=== PATIENT | female | born 1930 | race Caucasian/White ===

== ENCOUNTER 2016-11-11 15:14 | Inpatient (IN) | payer MEDICARE, BC ==
[~2016-11-11] VITALS: Ht 160 cm; Wt 72.2 kg
[~2016-11-11 15:14] MED LIST: ALPR0.25 PO; AMIT50TA3 PO; CALC200S NASAL; POTA1TAB4 PO; RANI300T PO; REST0.05 EACH EYE; TORS20TA PO; ZOCO40TA PO
[2016-11-11 15:18] VITALS: BP 161/95; PULSE 102; RESP 16; TEMP 97.9; O2SAT 95
[2016-11-11 15:25] VITALS: BP 177/95; PULSE 88; RESP 14; O2SAT 94
[2016-11-11 15:28] VITALS: O2SAT 99
[2016-11-11] MEDS ORDERED: TRIAPOW TP (15:44)
[2016-11-11] MEDS ORDERED: CALC1TAB87 PO (15:44)
[2016-11-11] MEDS ORDERED: ALPR.25 PO (15:44)
[2016-11-11] MEDS ORDERED: CYAN1TAB24 PO (15:44)
[2016-11-11] MEDS ORDERED: CLOB0.055 TOPICAL (15:44)
[2016-11-11] MEDS ORDERED: FISH1000 PO (15:44)
[2016-11-11] MEDS ORDERED: NYST0.1P TOPICAL (15:44)
[2016-11-11] MEDS ORDERED: [UNRECOGNIZED DRUG - CODE] TP (15:44)
[2016-11-11] MEDS ORDERED: ASPI1TAB69 PO (15:44)
[2016-11-11] MEDS ORDERED: PROB1TAB PO (15:44)
--- NOTE | 2016-11-11 16:12 | PD ---
HPI Chief Complaint: Neuro Symptoms/ Deficits Time Seen by Provider: 16:00 Travel History International Travel<30 days: No Contact w/Intl Traveler<30days: No Traveled to known affect area: No History of Present Illness HPI This patient complains of having strokelike symptoms. Yesterday at dinner time she developed speech slurring and facial droop and drooling. Her cyst through right now. Duration is about 22 hours. Severity is moderate. No alleviating factors. She denies headache or head injury. She takes a baby aspirin daily. She has no extremity weakness or numbness complaints. PFSH Past Medical History Arthritis: Yes Blood Disorders: No Heart Rhythm Problems: Yes Cancer: Yes Cardiovascular Problems: Yes High Cholesterol: Yes Chemotherapy: No Cerebrovascular Accident: Yes Endocrine: No Gastrointestinal Disorders: Yes Genitourinary: No Headaches: Yes Hypertension: Yes (IN THE PAST) Immune Disorder: No Musculoskeletal: Yes (TORN LEFT MENISCUS) Neurologic: Yes (POOR BALANCE-NEUROPATHY FEET-TINGLING) Psychiatric: No Reproductive: No Respiratory: No Radiation Therapy: No Ulcer: Yes Past Surgical History Abdominal Surgery: Yes (COLON RESECTION-APPY) Gynecologic Surgery: Yes (HYSTERECTOMY) Other Surgery: Yes (SEE BELOW, MOES ON HER NOSE ) Social History Alcohol Use: Yes (OCC) Tobacco Use: No Substance Use: No Allergies-Medications (Allergen,Severity, Reaction): Coded Allergies: Neomycin (Verified Allergy, Severe, RASH, 03/15/16) Penicillin (Verified Allergy, Severe, RASH, 03/15/16) Sulfa (Verified Allergy, Severe, RASH, 03/15/16) Reported Meds & Prescriptions Reported Meds & Active Scripts Active Amitriptyline (Amitriptyline HCl) 50 Mg Tab 50 Mg PO HS Ranitidine (Ranitidine HCl) 300 Mg Tab 300 Mg PO DAILY Reported Ceramax (Skin Protectants, Misc.) 1 Cre Cre 1 Applic TP DAILY Clobetasol Topical (Clobetasol Propionate) 0.05% Cream 1 Applic TOPICAL BID Triamcinolone Acetonide (Triamcinolone Acetonide (Topic) 1 Pow Pow 1 Appl TP DAILY Nyata (Nystatin (Topical)) 100,000 Unit/Gm Pow 1 Applic TOPICAL DAILY Fish Oil ([place]-3 Fatty Acids) 1,000 Mg Cap 1 Cap PO DAILY Probiotic (Probiotic Product) 1 Tab Tab 1 Tab PO DAILY B12 (Cyanocobalamin) 1,000 Mcg Tab 1 Tab PO DAILY Calcium 600 with Vitamin D (Calcium Carbonate-Cholecalciferol) 600-400 mg-Unit Tab 1 Tab PO DAILY Aspirin 81 Mg Tabdr 81 Mg PO DAILY Xanax (Alprazolam) 0.25 Mg Tab 0.25 Mg PO Q4H PRN Zocor (Simvastatin) 40 Mg Tab 40 Mg PO DAILY Restasis Opth Drops (Cyclosporine Opth Drops) 0.05% Emul 1 Drop EACH EYE BID Torsemide 20 Mg Tab 20 Mg PO BID K-Tab (Potassium Chloride) 20 Meq Tab 20 Meq PO DAILY Calcitonin ([place]) Nasal [place] (Calcitonin [place]) 200 Units/Act Soln 1 [place] NASAL DAILY Alternate nostrils daily. Review of Systems General / Constitutional: No: Fever Eyes: No: Visual changes HENT: No: Headaches Cardiovascular: No: Chest Pain or Discomfort Respiratory: No: Shortness of Breath Gastrointestinal: No: Abdominal Pain Genitourinary: No: Dysuria Musculoskeletal: No: Pain Skin: No Rash Neurologic: Positive: Slurred Speech, No: Weakness Psychiatric: No: Depression Endocrine: No: Polydipsia Hematologic/Lymphatic: No: Easy Bruising Physical Exam Narrative GENERAL: Well-nourished, well-developed patient in no apparent distress. SKIN: Focused skin assessment reveals no rash and nodules. Skin is Warm and dry. HEAD: Atraumatic. Normocephalic. EYES: Pupils equal and round. No scleral icterus. No injection or drainage. ENT: No nasal bleeding or discharge. Mucous membranes pink and moist. NECK: Trachea midline. No JVD. CARDIOVASCULAR: Regular rate and rhythm. No murmur appreciated. RESPIRATORY: No accessory muscle use. Clear to auscultation. Breath sounds equal bilaterally. GASTROINTESTINAL: Abdomen soft, non-tender, nondistended. Hepatic and splenic margins not palpable. MUSCULOSKELETAL: No obvious deformities. No clubbing. No cyanosis. No edema. NEUROLOGICAL: Awake and alert. Has left-sided facial droop. Tongue protrudes slightly to the right. She has slurred speech. Motor grossly within normal limits. PSYCHIATRIC: Appropriate mood and affect; insight and judgment normal. Data Data Last Documented VS Vital Signs Date Time Temp Pulse Resp B/P Pulse Ox O2 Delivery O2 Flow Rate FiO2 11/11/16 15:28 84 17 95 Room Air 11/11/16 15:25 177/95 11/11/16 15:18 97.9 Orders Electrocardiogram (11/11/16 16:07) Prothrombin Time / Inr (Pt) (11/11/16 16:07) Act Partial Throm Time (Ptt) (11/11/16 16:07) Complete Blood Count With Diff (11/11/16 16:07) Basic Metabolic Panel (Bmp) (11/11/16 16:07) Ct Brain W/O Iv Contrast(Rout) (11/11/16 16:07) Ecg Monitoring (11/11/16 16:07) Iv Access Insert/Monitor (11/11/16 16:07) Oximetry (11/11/16 16:07) Sodium Chloride 0.9% Flush (Ns Flush) (11/11/16 16:15) Labs Laboratory Tests Test 11/11/16 15:50 White Blood Count 7.1 TH/MM3 Red Blood Count 4.77 MIL/MM3 Hemoglobin 13.7 GM/DL Hematocrit 42.0 % Mean Corpuscular Volume 88.1 FL Mean Corpuscular Hemoglobin 28.8 PG Mean Corpuscular Hemoglobin 32.7 % Concent Red Cell Distribution Width 15.7 % Platelet Count 264 TH/MM3 Mean Platelet Volume 7.3 FL Neutrophils (%) (Auto) 79.3 % Lymphocytes (%) (Auto) 12.1 % Monocytes (%) (Auto) 7.9 % Eosinophils (%) (Auto) 0.4 % Basophils (%) (Auto) 0.3 % Neutrophils # (Auto) 5.6 TH/MM3 Lymphocytes # (Auto) 0.9 TH/MM3 Monocytes # (Auto) 0.6 TH/MM3 Eosinophils # (Auto) 0.0 TH/MM3 Basophils # (Auto) 0.0 TH/MM3 CBC Comment DIFF FINAL Differential Comment Prothrombin Time 10.7 SEC Prothromb Time International 1.0 RATIO Ratio Activated Partial 26.7 SEC Thromboplast Time Sodium Level 134 MEQ/L Potassium Level 4.0 MEQ/L Chloride Level 98 MEQ/L Carbon Dioxide Level 27.9 MEQ/L Anion Gap 8 MEQ/L Blood Urea Nitrogen 15 MG/DL Creatinine 1.00 MG/DL Estimat Glomerular Filtration 53 ML/MIN Rate Random Glucose 104 MG/DL Calcium Level 10.0 MG/DL MDM Medical Decision Making Medical Screen Exam Complete: Yes Emergency Medical Condition: Yes Medical Record Reviewed: Yes Differential Diagnosis CVA, TIA, hemorrhage intracranially Narrative Course I have reviewed the patient's electronic medical record. IV placed Brain CT is negative CBC is normal Metabolic profile is normal Coagulation studies are normal I reviewed her EKG which shows sinus rhythm without ectopy Extended cardiac monitoring reveals sinus rhythm without ectopy Presentation is consistent with an ischemic stroke that started 22 hours ago. She is a baby aspirin failure. She'll be admitted for acute ischemic stroke. She is way outside TPA window which is not a consideration at this late time. I placed a call to the medical residents for admission Diagnosis Primary Impression: Acute ischemic stroke Admitting Information Admitting Physician Requests: Admit Dav Mata MD Nov 11, 2016 16:12
[2016-11-11] MEDS ORDERED: SODIUM CHLORIDE 0.9% FLUSH 10 ML FLUSH IVF PRN (16:15)
[2016-11-11 16:33] LABS: AUTOMATED NEUTROPHIL # 5.6 TH/MM3 (1.8-7.7); BASOPHIL % 0.3 % (0.0-2.0); EOSINOPHIL % 0.4 % (0.0-4.0); HEMO FLAGS DIFF FINAL; LYMPH % 12.1 % (9.0-44.0); LYMPHOCYTE # 0.9 TH/MM3 (1.0-4.8); MEAN CELL VOLUME 88.1 FL (80.0-100.0); MEAN CORPUSCULAR HEMOGLOBIN 28.8 PG (27.0-34.0); MEAN CORPUSCULAR HGB CONC 32.7 % (32.0-36.0); MONO % 7.9 % (0.0-8.0); NEUT % 79.3 % (16.0-70.0); PLATELET COUNT 264 TH/MM3 (150-450); RED BLOOD COUNT 4.77 MIL/MM3 (4.00-5.30); RED CELL DISTRIBUTION WIDTH 15.7 % (11.6-17.2); WHITE BLOOD COUNT 7.1 TH/MM3 (4.0-11.0)
[2016-11-11 16:49] LABS: APTT (PATIENT) 26.7 SEC (24.3-30.1); PROTHROMBIN TIME - PATIENT 10.7 SEC (9.8-11.6)
[2016-11-11 16:53] LABS: BICARBONATE 27.9 MEQ/L (21.0-32.0)
--- NOTE | 2016-11-11 17:02 | RADRPT ---
EXAM DATE/TIME: 11/11/2016 16:41 [facility] COMPARISON: No previous studies available for comparison. INDICATIONS : Right sided facial droop and slurred speech since last night. RADIATION DOSE: 33.74 CTDIvol (mGy) MEDICAL HISTORY : Stroke. Hypertension. Carcinoma, colon. SURGICAL HISTORY : None. ENCOUNTER: Initial ACUITY: 1 day PAIN SCALE: 0/10 LOCATION: Bilateral head TECHNIQUE: Multiple contiguous axial images were obtained of the head. Using automated exposure control and adj ustment of the mA and/or kV according to patient size, radiation dose was kept as low as reasonably a chievable to obtain optimal diagnostic quality images. FINDINGS: CEREBRUM: The ventricles are normal for age. No evidence of midline shift, mass lesion, hemorrhage or acute in farction. No extra-axial fluid collections are seen. POSTERIOR FOSSA: The cerebellum and brainstem are intact. The 4th ventricle is midline. The cerebellopontine angle i s unremarkable. EXTRACRANIAL: The visualized portion of the orbits is intact. SKULL: The calvaria is intact. No evidence of skull fracture. CONCLUSION: 1. No acute findings. Elliot Cruz MD on November 11, 2016 at 16:59 Board Certified Radiologist. This report was verified electronically.
--- NOTE | 2016-11-11 17:49 | HHI.HP ---
[facility] Service Family Medicine Primary Care Physician Non-Staff Admission Diagnosis acute ischemic CVA Diagnoses: International Travel<30 Days: No Contact w/Intl Traveler<30days: No Known Affected Area: No History of Present Illness 85-year-old female with hypertension, hyperlipidemia, and hx of stroke (2007 ) presents with slurred speech, dysphagia, and R-sided facial droop x1 day. She noticed slurred speech and trouble swallowing yesterday at 3pm when unable to chew salad or swallow water at lunch. Her last known normal was just prior to this meal. Other symptoms include difficulty writing with her R hand. She denies headache, blurred vision, confusion, syncope, or sudden weakness associated with this event. Only changes to health are two days ago noted L- sided neck pain and "lump", now resolved, she attributed to possible tooth infection. Also fatigue over the last three months, acutely worse in last six days after a skin biopsy from the tip of her nose. Patient lives independently at apartment in [facility]. She did not originally come to hospital as friend suggested symptoms were more typical of allergic medication reaction to Doxycycline she began this week for her nose wound after biopsy. As symptoms were unchanged today, it prompted her to take cab to hospital. Code Status is DNR. (Em Harvey MD R1) Review of Systems Constitutional: DENIES: Fever, Chills Endocrine: COMPLAINS OF: Polydipsia (chronic, dry mouth) Eyes: COMPLAINS OF: Vision loss (chronic, LUQ), DENIES: Blurred vision, Diplopia, Double Vision Ears, nose, mouth, throat: COMPLAINS OF: Running Nose (chronic, allergies), DENIES: Throat pain, Epistaxis, Odynophagia Respiratory: DENIES: Cough, Wheezing, Shortness of breath Cardiovascular: COMPLAINS OF: Lower Extremity Edema (chronic, R > L), DENIES: Chest pain, Palpitations, Syncope Gastrointestinal: COMPLAINS OF: Nausea (yesterday, resolved), Difficulty Swallowing, DENIES: Abdominal pain, Vomiting Genitourinary: COMPLAINS OF: Urinary incontinence (chronic, must "focus" to go) Musculoskeletal: COMPLAINS OF: Neck pain (chronic) Integumentary: COMPLAINS OF: Abnormal pigmentation (lower extremities) Hematologic/lymphatic: DENIES: Lymphadenopathy Neurologic: COMPLAINS OF: Speech Problems, DENIES: Headache Psychiatric: DENIES: Confusion, Mood changes, Depression (Em Harvey MD R1 ) Past Family Social History Past Medical History - osteoporosis with lumbar compression fx - PUD with GI bleeding 2005 - carpal tunnel syndrome L>R - h/o gout - hypertension (Denies) - cerebrovascular disease (hx stroke 2007) - diastolic dysfunction - hyperlipidemia - dry eyes and mouth - h/o colon cancer - OA Past Surgical History - resection of colon cancer 1999 - appendectomy 2000 - cervical spine surgery 2007 - hysterectomy 1997 Reported Medications Active Amitriptyline (Amitriptyline HCl) 50 Mg Tab 50 Mg PO HS Ranitidine (Ranitidine HCl) 300 Mg Tab 300 Mg PO DAILY Reported Ceramax (Skin Protectants, Misc.) 1 Cre Cre 1 Applic TP DAILY Clobetasol Topical (Clobetasol Propionate) 0.05% Cream 1 Applic TOPICAL BID Triamcinolone Acetonide (Triamcinolone Acetonide (Topic) 1 Pow Pow 1 Appl TP DAILY [place]ata (Nystatin (Topical)) 100,000 Unit/Gm Pow 1 Applic TOPICAL DAILY Fish Oil ([place]-3 Fatty Acids) 1,000 Mg Cap 1 Cap PO DAILY Probiotic (Probiotic Product) 1 Tab Tab 1 Tab PO DAILY B12 (Cyanocobalamin) 1,000 Mcg Tab 1 Tab PO DAILY Calcium 600 with Vitamin D (Calcium Carbonate-Cholecalciferol) 600-400 mg-Unit Tab 1 Tab PO DAILY Aspirin 81 Mg Tabdr 81 Mg PO DAILY Xanax (Alprazolam) 0.25 Mg Tab 0.25 Mg PO Q4H PRN Zocor (Simvastatin) 40 Mg Tab 40 Mg PO DAILY Restasis Opth Drops (Cyclosporine Opth Drops) 0.05% Emul 1 Drop EACH EYE BID Torsemide 20 Mg Tab 20 Mg PO BID K-Tab (Potassium Chloride) 20 Meq Tab 20 Meq PO DAILY Calcitonin ([place]) Nasal [place] (Calcitonin [place]) 200 Units/Act Soln 1 [place] NASAL DAILY Alternate nostrils daily. (Em aHrvey MD R1) Allergies: Coded Allergies: Neomycin (Verified Allergy, Severe, RASH, 03/15/16) Penicillin (Verified Allergy, Severe, RASH, 03/15/16) Sulfa (Verified Allergy, Severe, RASH, 03/15/16) Family History Father: age 86 of heart failure Mother: age 96 of CHF Siblings: none Children: 3 - 1 age 59 of multiple myeloma Social History Marital Status: Living Situation: Living in an independent apartment at [facility] Education: 4 years of college Work history: retired, aerospace management Tobacco: none Alcohol: none Illicit drug use: none (Em Harvey MD R1) Physical Exam Vital Signs Vital Signs Date Time Temp Pulse Resp B/P Pulse Ox O2 Delivery O2 Flow Rate FiO2 11/11/16 15:28 84 17 95 Room Air 11/11/16 15:28 99 Room Air 11/11/16 15:25 88 14 177/95 94 11/11/16 15:18 97.9 102 16 161/95 95 Physical Exam GENERAL: Obese elderly female in NAD SKIN: Venous stasis changes lower extremities bilaterally. Warm and dry HEENT: Pupils equal round and reactive. Extraocular motions intact. No scleral icterus. No injection or drainage. Nose with 5mm circular wound with granulation tissue covered by bandaid. Throat without erythema, tonsillar hypertrophy or exudate. Uvula midline. Airway patent NECK: Trachea midline. No lymphadenopathy. No carotid bruits. CARDIOVASCULAR: Distant heart sounds. Regular rate and rhythm, without murmurs or gallops. RESPIRATORY: Lungs clear to auscultation bilaterally. No wheezes, rales, or rhonchi. GASTROINTESTINAL: Abdomen obese, soft, non-tender, nondistended. No hepato- splenomegaly, or palpable masses. No guarding. MUSCULOSKELETAL: Wearing shear compression stockings rolled down to ankle. Peripheral edema 1+ LE. Firmness to L calf. R calf larger in diameter than L ( pt states chronic), no calf tenderness. Posterior tibial pulses present. NEUROLOGICAL: AAO. Sensation intact V1-V3. Normal eyebrow raise, symmetrical wrinkling of forehead, normal eye closure. R-sided facial droop with smile. R-sided tongue deviation with extension. R shoulder sits lower than L at rest, though shrug strength full and equal. Slowed ability of R hand to rapidly alternate palm and dorsal hand surface to L palm. No pronator drift. Strength 5/5 and equal at SCM, deltoid, biceps, triceps, finger manager embalmer funeral director, hip flexion, knee flexion/extension, ankle flexion/extension Sensation grossly intact to V1-V3 and upper and lower extremities Patellar reflex 1+ bilaterally Gait with walker not overtly ataxic Laboratory Laboratory Tests Test 11/11/16 15:50 White Blood Count 7.1 Red Blood Count 4.77 Hemoglobin 13.7 Hematocrit 42.0 Mean Corpuscular Volume 88.1 Mean Corpuscular Hemoglobin 28.8 Mean Corpuscular Hemoglobin 32.7 Concent Red Cell Distribution Width 15.7 Platelet Count 264 Mean Platelet Volume 7.3 Neutrophils (%) (Auto) 79.3 Lymphocytes (%) (Auto) 12.1 Monocytes (%) (Auto) 7.9 Eosinophils (%) (Auto) 0.4 Basophils (%) (Auto) 0.3 Neutrophils # (Auto) 5.6 Lymphocytes # (Auto) 0.9 Monocytes # (Auto) 0.6 Eosinophils # (Auto) 0.0 Basophils # (Auto) 0.0 CBC Comment DIFF FINAL Differential Comment Prothrombin Time 10.7 Prothromb Time International 1.0 Ratio Activated Partial 26.7 Thromboplast Time Sodium Level 134 Potassium Level 4.0 Chloride Level 98 Carbon Dioxide Level 27.9 Anion Gap 8 Blood Urea Nitrogen 15 Creatinine 1.00 Estimat Glomerular Filtration 53 Rate Random Glucose 104 Calcium Level 10.0 (Em Harvey MD R1) Result Diagram: 11/11/16 1550 11/11/16 1550 Imaging Last Impressions Head CT 11/11/16 1607 Signed Impressions: Service Date/Time: Friday, November 11, 2016 16:41 - CONCLUSION: 1. No acute findings. Elliot Cruz MD (Em Harvey MD R1) Assessment and Plan Assessment and Plan 85 year-old female presenting with slurred speech and R facial droop 22 hours prior to admission, found to have acute ischemic stroke. Failed aspirin therapy. Code Status DNR Discussed Condition With Seen and discussed with Dr. Cole (Em Harvey MD R1) Attending Attestation THIS CASE WAS DISCUSSED WITH THE RESIDENT PHYSICIANS. I HAVE REVIEWED THE RECORD AND AGREE WITH THE ABOVE NOTE AND PLAN OF CARE WAS DISCUSSED. I HAVE AUTHORIZED THE ORDER FOR ADMISSION TO AN IN-PATIENT STATUS. (Manuel Lemons MD) Problem List: (1) Acute ischemic stroke Status: Acute Plan: 85-year-old female with hypertension, hyperlipidemia, and hx of ischemic stroke in 2007 with subsequent deficit of LUQ vision, presenting with 22 hours of slurred speech, difficulty swallowing, and right-sided facial droop suggestive of acute ischemic stroke. Outside of window for TPA consideration. CT head negative for bleed. EKG wnl. Will admit for further imaging, workup, and antiplatelet therapy. Only imaging in EHR a cervical neck Xray from 2007. No prior cardiac or neurological imaging in EHR. -Admit to [facility] Service under Dr. Lemons -Consult Neurology, PT/OT/ST, Stroke navigator, Case Management -Head of bed flat to 30 degrees for first 12 hours -OOB with assistance- no focal weakness upper or lower extremities on exam. Pt gait observed with wheeled walker- steady, no overt ataxia or weakness -Low suspicion for cardiac involvement- no chest pain, EKG x1 wnl, will trend trop/cpk x1, if reassuring, will not continue to follow -Continuous telemetry, pulse oximetry with O2 1-4L PRN to maintain saturations > 90 -Permissive hypertension to 220/110 -Hyperglycemia prophylaxis with accue-checks ACHS + LSSI -NIH stroke scale on admission and discharge -Neurochecks per protocol -NPO diet until advanced by speech therapy -Fall precautions Imaging MRA brain w/o contrast, MRI brain w/o contrast, ECHO, US carotid arteries pending CT head (11/11): no acute findings, negative for bleed. EKG: sinus rhythm without ectopy Medications -Continue 81mg aspirin daily -Add Plavix 75 mg by mouth daily -1/2 MIVF @66cc/hr for poor PO intake secondary to dysphagia. If PO cleared by speech, discontinue fluids in light of diastolic CHF + peripheral edema -PRN Vas[employer] 1.25mg q4h PRN blood pressure >220/120 -LSSI, to be discontinued if glucose <150 for 48 hours (2) Diastolic dysfunction Status: Acute Plan: No cardiac imaging in EHR. Diagnosis per PCP Note and clinical presentation with peripheral edema. -Home Torsemide 20mg PO BID -Home KCl 20meq PO daily -Home Aspirin 81 Mg PO daily -ECHO pending (3) HLD (hyperlipidemia) Status: Acute Plan: Hold home statin -Atorvastatin 40mg HS -Lipid panel in AM (4) Nutrition, metabolism, and development symptoms Status: Acute Plan: Fluids: 1/2MIVF secondary to poor po (NS @ 66cc/hr) Electrolytes: Monitor and replete, as needed Nutrition: NPO until speech evaluation, advance diet with speech recommendations GI prophylaxis: not indicated, continue home Ranitidine DVT prophlaxis: Lovenox 40mg SQ q24h Chronic Medical Conditions Depression: Continue Amitriptyline 50 Mg PO HS Insomnia: Continue Xanax 0.25 Mg PO Q4H PRN (pt states rare use) GERD: Continue Ranitidine 300mg PO daily. Hold Probiotic HLD: Hold Simvastatin 40 Mg PO daily. Will replace with higher strength. Venous Statis: Hold Ceramax Cream. Hold Clobetasol Topical creme Fungal rash: Hold Triamcinolone Acetonide. Hold Nystatin. HLD: Hold Fish Oil Supplements: Hold B12 Osteoporosis: Hold Calcium with Vitamin D Dry Eyes: Hold Restasis Opth Drops Allergic rhinitis: Hold Calcitonin Nasal [place] (Em Harvey MD R1) Physician Certification 2 Midnight Certification Type: Admission for Inpatient Services Order for Inpatient Services The services are ordered in accordance with Medicare regulations or non- Medicare payer requirements, as applicable. In the case of services not specified as inpatient-only, they are appropriately provided as inpatient services in accordance with the 2-midnight benchmark. Estimated LOS (days): 3 days is the estimated time the patient will need to remain in the hospital, assuming treatment plan goals are met and no additional complications. Post-Hospital Plan: Not yet determined (Em Harvey MD R1) Problem Qualifiers (1) HLD (hyperlipidemia): Qualified Code: E78.5 - Hyperlipidemia, unspecified hyperlipidemia type Em Harvey MD R1 Nov 11, 2016 17:49 Manuel Lemons MD Nov 12, 2016 10:52
[2016-11-11] MEDS: CALCITONIN SALM 200 UNIT/SPRAY 3.7 ML BTLN NASAL SCH (18:15)
[2016-11-11] MEDS ORDERED: ALPRAZolam 0.25 MG TAB PO PRN (18:15)
[2016-11-11 18:39] VITALS: BP 166/91; PULSE 76; RESP 16; O2SAT 95
[2016-11-11] MEDS ORDERED: ENALAPRILAT 1.25 MG/ML VIAL IV PRN (18:45)
[2016-11-11] MEDS ORDERED: GLUCAGON 1 MG/ML VIAL IM/SQ PRN (18:45)
[2016-11-11] MEDS ORDERED: SODIUM CHLORIDE 0.9% FLUSH 10 ML FLUSH IV FLUSH PRN (18:45)
[2016-11-11] MEDS ORDERED: DEXTROSE 50% IN WATER 50 ML VIAL(D50) IV PUSH PRN (18:45)
[2016-11-11] MEDS: CLOPIDOGREL 75 MG TAB PO SCH (19:51)
[2016-11-11] MEDS: ENOXAPARIN SODIUM 40 MG/0.4 ML SYRINGE SQ SCH (19:51)
[2016-11-11 19:52] VITALS: BP 166/91; PULSE 75; RESP 18; O2SAT 97
[2016-11-11] MEDS: SODIUM CHLOR 0.9% 1000 ML INJ 1,000 ML IV SCH (19:52)
[2016-11-11] MEDS: SODIUM CHLORIDE 0.9% FLUSH 10 ML FLUSH IV FLUSH SCH (21:00)
[2016-11-11] MEDS: INSULIN ASPART SUPPLEMENTAL SCALE SQ SCH (21:26)
[2016-11-11] MEDS: TORSEMIDE 20 MG TAB PO SCH (21:30)
[2016-11-11 22:03] LABS: CREATINE KINASE 242 U/L (26-192)
[2016-11-11 22:15] LABS: CKMB 6.2 NG/ML (0.5-3.6)
[2016-11-11] MEDS: AMITRIPTYLINE HCL 50 MG TAB PO SCH (22:23)
--- NOTE | 2016-11-11 22:28 | RADRPT ---
EXAM DATE/TIME: 11/11/2016 20:04 [facility] COMPARISON: No previous studies available for comparison. INDICATIONS : Cerebrovascular accident. MEDICAL HISTORY : Hypercholesterolemia. Hypertension. Bilateral cataracts. Cerebrovascular accident. Irregular heartb eat. Colon cancer. Ulcer. Arthritis. Neuropathy. Osteoporosis. Blood transfusion. SURGICAL HISTORY : Appendectomy. Colon resection. Hysterectomy. Right finger amputation. ENCOUNTER: Initial ACUITY: 1 day PAIN SCORE: 0/10 LOCATION: Bilateral neck PEAK SYSTOLIC VELOCITIES (cm/sec): ICA/CCA RATIO: Right: 1.3 Left: 1.6 ICA: Right: 76 Left: 69 CCA: Right: 57 Left: 43 ECA: Right: 76 Left: 59 VERTEBRAL: Right: 51 antegrade Left: 34 antegrade Elevated flow velocities and ICA/CCA ratios have been found to correlate with increased degrees of vessel stenosis, calculated as percentage of diameter relative to a normal segment of distal ICA/CCA FINDINGS: RIGHT CAROTID: No significant stenosis is visualized. The waveforms are within normal limits. LEFT CAROTID: No significant stenosis is visualized. The waveforms are within normal limits. VERTEBRAL ARTERIES: Antegrade flow is seen in both vertebral arteries. MISCELLANEOUS: None. CONCLUSION: 1. Mild plaque in the carotid arteries bilaterally without evidence for hemodynamically significant s tenosis. Vertebral artery flow antegrade. Elliot Cruz MD on November 11, 2016 at 22:25 Board Certified Radiologist. This report was verified electronically.
[2016-11-11] MEDS: ATORVASTATIN 40 MG TAB PO SCH (22:30)
[2016-11-12 00:33] VITALS: BP 147/82; PULSE 72; RESP 20; TEMP 96.8; O2SAT 95
[2016-11-12 04:42] VITALS: BP 135/74; PULSE 76; RESP 18; TEMP 97.7; O2SAT 94
[2016-11-12] MEDS: INSULIN ASPART SUPPLEMENTAL SCALE SQ SCH ×2 (06:14→20:46)
[2016-11-12 07:59] LABS: AUTOMATED NEUTROPHIL # 3.9 TH/MM3 (1.8-7.7); BASOPHIL % 0.3 % (0.0-2.0); EOSINOPHIL # 0.2 TH/MM3 (0-0.4); EOSINOPHIL % 2.7 % (0.0-4.0); HEMATOCRIT 38.5 % (35.0-46.0); HEMO FLAGS DIFF FINAL; LYMPH % 19.7 % (9.0-44.0); LYMPHOCYTE # 1.1 TH/MM3 (1.0-4.8); MEAN CELL VOLUME 87.5 FL (80.0-100.0); MEAN CORPUSCULAR HGB CONC 33.1 % (32.0-36.0); MONO % 10.7 % (0.0-8.0); NEUT % 66.6 % (16.0-70.0); PLATELET COUNT 243 TH/MM3 (150-450); RED CELL DISTRIBUTION WIDTH 15.7 % (11.6-17.2); WHITE BLOOD COUNT 5.8 TH/MM3 (4.0-11.0)
[2016-11-12 08:25] VITALS: BP 130/76; PULSE 66; RESP 20; TEMP 97.2; O2SAT 95
[2016-11-12 08:35] LABS: ALKALINE PHOSPHATASE 84 U/L (45-117); ALT (GPT) 19 U/L (10-53); ANION GAP 10 MEQ/L (5-15); AST (GOT) 22 U/L (15-37); BICARBONATE 23.6 MEQ/L (21.0-32.0); BLOOD UREA NITROGEN 10 MG/DL (7-18); CHLORIDE 105 MEQ/L (98-107); GLOMERULAR FILTRATION RATE 90 ML/MIN (>89); HDL CHOLESTEROL 29.6 MG/DL (40.0-60.0); LDL CHOLESTEROL 70 MG/DL (0-99); POTASSIUM 3.3 MEQ/L (3.5-5.1); SODIUM (NA) 139 MEQ/L (136-145); TOTAL BILIRUBIN ADULT 0.7 MG/DL (0.2-1.0)
[2016-11-12] MEDS: CLOPIDOGREL 75 MG TAB PO SCH (08:44)
[2016-11-12] MEDS: FAMOTIDINE 20 MG TAB PO SCH (08:44)
[2016-11-12] MEDS: SODIUM CHLORIDE 0.9% FLUSH 10 ML FLUSH IV FLUSH SCH ×2 (08:45→20:46)
[2016-11-12] MEDS: TORSEMIDE 20 MG TAB PO SCH ×2 (08:45→20:45)
[2016-11-12] MEDS: POTASSIUM CHLORIDE 20 MEQ CONTROLLED RELEASE TAB PO SCH (08:45)
[2016-11-12] MEDS: CALCITONIN SALM 200 UNIT/SPRAY 3.7 ML BTLN NASAL SCH (08:45)
[2016-11-12] MEDS ORDERED: ASPIRIN EC 81 MG TABEC PO SCH (09:00)
--- NOTE | 2016-11-12 10:27 | RADRPT ---
EXAM DATE/TIME: 11/12/2016 07:31 [facility] COMPARISON: CT BRAIN W/O CONTRAST, November 11, 2016, 16:41. INDICATIONS : Slurred speech. Right facial droop. MEDICAL HISTORY : Hypertension. Carcinoma, colon. SURGICAL HISTORY : Hysterectomy. Colon resection. ENCOUNTER: Initial ACUITY: 2 day PAIN SCORE: 0/10 LOCATION: cranial TECHNIQUE: Multiplanar, multisequence MRI of the brain was performed without contrast. FINDINGS: There is no evidence for intracranial hemorrhage, mass effect, mass lesions, edema, or extra-axial fl uid collections. There is an approximate 1.4 cm area of abnormal diffusion in the left mid parietal p eriventricular region with a punctate area adjacent to it characteristic of acute infarction without hemorrhage or mass effect. There is a questionable punctate area involving the anterior portion of th e midbrain at the junction of the travis on the left side possibly artifactually created on the diffusi on portion of the exam. Slight degree of brain atrophy is seen. Slight periventricular white matter c hanges are seen nonspecific mostly consistent with chronic small vessel ischemic changes. CONCLUSION: Acute infarction involving the left parietal lobe without hemorrhage or mass effect a nd probable artifact involving the anterior portion of the brainstem on the left side as above. Agueda Palencia MD on November 12, 2016 at 10:23 Board Certified Radiologist. This report was verified electronically.
--- NOTE | 2016-11-12 10:29 | RADRPT ---
EXAM DATE/TIME: 11/12/2016 07:31 [place] COMPARISON: MRI BRAIN W/O CONTRAST, November 12, 2016, 7:31. INDICATIONS : Slurred speech. Right facial droop. MEDICAL HISTORY : Hypertension. Carcinoma, colon. SURGICAL HISTORY : Colon resection. Hysterectomy. ENCOUNTER: Initial ACUITY: 2 day PAIN SCORE: 0/10 LOCATION: cranial Please note a normal MRA of the brain does not entirely exclude the possibility of a small aneurysm, nor the possibility of distal intracranial vessel disease. TECHNIQUE: 3D time of flight MRA was performed. Source images, multiplanar STS MIP, and 3D volume MIP reconstru ctions were reviewed. FINDINGS: No significant vascular malformations, vessel truncation or aneurysmal dilatations are seen except fo r slight atherosclerotic changes involving multiple branches bilaterally mainly the MCAs. CONCLUSION: Slight atherosclerotic changes of distal branches bilaterally, otherwise unremarkable . Agueda Palencia MD on November 12, 2016 at 10:26 Board Certified Radiologist. This report was verified electronically.
--- NOTE | 2016-11-12 10:44 | PD.CONS ---
History of Present Illness Service Neurology Consult Requested By medical Reason for Consult stroke Primary Care Physician Non-Staff History of Present Illness 85-year-old female admitted for speech changes >12 hrs from arrival. had recent nasal surgery and was taken off aspirin. ct brain naicp. doing well this am. no briones, no cp, no dyspnea. no hx of afib. remote hx of stroke in the past that caused a left field defect from which she has recovered well from. Review of Systems as above and admit hp Past Family Social History Past Medical History osteoporosis with lumbar compression fx PUD with GI bleeding 2005 carpal tunnel syndrome L>R hypertension? cerebrovascular disease (hx stroke 2007) hyperlipidemia h/o colon cancer Past Surgical History resection of colon cancer 1999 appendectomy 2000 cervical spine surgery 2007 Reported Medications Active Amitriptyline (Amitriptyline HCl) 50 Mg Tab 50 Mg PO HS Ranitidine (Ranitidine HCl) 300 Mg Tab 300 Mg PO DAILY . Allergies: Coded Allergies: Neomycin (Verified Allergy, Severe, RASH, 03/15/16) Penicillin (Verified Allergy, Severe, RASH, 03/15/16) Sulfa (Verified Allergy, Severe, RASH, 03/15/16) Family History Father: age 86 of heart failure Mother: age 96 of CHF Social History Tobacco: none Alcohol: none Illicit drug use: none Review of Systems All other ROS: ROS reviewed as documented in chart Past Family Social History Allergies: Coded Allergies: Neomycin (Verified Allergy, Severe, RASH, 03/15/16) Penicillin (Verified Allergy, Severe, RASH, 03/15/16) Sulfa (Verified Allergy, Severe, RASH, 03/15/16) Active Ordered Medications Current Medications Medications (Trade) Dose Ordered Sig/Gavin Route Start Time Stop Time Status Last Admin (Xanax) 0.25 mg Q4H PRN PO 11/11/16 18:15 11/12/16 06:33 (Elavil) 50 mg HS PO 11/11/16 21:00 11/11/16 22:23 (NS Flush) 2 ml BID IV FLUSH 11/11/16 21:00 11/12/16 08:45 Sodium Chloride 2 ml 2 ml UNSCH PRN IV FLUSH 11/11/16 18:45 (NS 1000 ml Inj) 1,000 ml @ 66 mls/hr [id number] IV 4/15/17 18:39 11/11/16 19:52 (Vasotec Inj) 1.25 mg Q4H PRN IV 11/11/16 18:45 (Plavix) 75 mg DAILY PO 11/11/16 18:45 11/12/16 08:44 (D50w (Vial) Inj) 25 ml UNSCH PRN IV PUSH 11/11/16 18:45 (Glucagon Inj) 1 mg UNSCH PRN IM/SQ 11/11/16 18:45 (Lovenox Inj) 40 mg Q24H SQ 11/11/16 20:00 11/11/16 19:51 (Ecotrin Ec) 81 mg DAILY PO 11/12/16 09:00 11/12/16 08:45 (KCl) 20 meq DAILY PO 11/12/16 09:00 11/12/16 08:45 (Demadex) 20 mg BID PO 11/11/16 21:30 11/12/16 08:45 (Pepcid) 40 mg DAILY PO 11/12/16 09:00 11/12/16 08:44 (Lipitor) 40 mg HS PO 11/11/16 22:30 Exam I&O / VS 11/11/16 11/11/16 11/12/16 15:00 23:00 07:00 Intake Total 364 ml Balance 364 ml Intake IV Total 364 ml # Voids 1 Vital Signs Date Time Temp Pulse Resp B/P Pulse Ox O2 Delivery O2 Flow Rate FiO2 11/12/16 08:25 97.2 66 20 130/76 95 11/12/16 04:42 97.7 76 18 135/74 94 11/12/16 00:33 96.8 72 20 147/82 95 11/11/16 19:52 75 18 166/91 97 Room Air 11/11/16 18:39 76 16 166/91 95 Room Air 11/11/16 15:28 84 17 95 Room Air 11/11/16 15:28 99 Room Air 11/11/16 15:25 88 14 177/95 94 11/11/16 15:18 97.9 102 16 161/95 95 General: Alert and Oriented, No acute distress Eye: EOMI Respiratory: Non-labored respirations Neurologic: Alert, Oriented Psychiatric: Cooperative, Appropriate mood & affect, Normal judgement, Non- suicidal Exam Comments alert sitting up, ox 3, follows, mild expressive aphasia, reduced rt nlf, eomi, vff, mild orbiting rt ue, 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 not certain left ventral dwi is artifact or real; could repeat mri in future lipids well controlled recs on plavix tele p.t./s.t. f/u echo bp control d/c planning in am (2) HLD (hyperlipidemia) (3) Diastolic dysfunction (4) HTN (hypertension) Problem Qualifiers (1) HLD (hyperlipidemia): Qualified Code: E78.5 - Hyperlipidemia, unspecified hyperlipidemia type (2) HTN (hypertension): Qualified Code: I10 - Essential hypertension Khai Hunter MD Nov 12, 2016 10:44
--- NOTE | 2016-11-12 10:52 | HHI.HP ---
[facility] Service Family Medicine Primary Care Physician Non-Staff Admission Diagnosis acute ischemic CVA Diagnoses: (1) Acute ischemic stroke (2) Diastolic dysfunction (3) HLD (hyperlipidemia) (4) Nutrition, metabolism, and development symptoms International Travel<30 Days: No Contact w/Intl Traveler<30days: No Known Affected Area: No History of Present Illness No acute events overnight and patient feels relatively well this morning. She continues to have right sided facial droop along with slurred speech but denies any unilateral paresthesias or weakness. She has been out of bed to the chair and to the bathroom, she states that she was walking relatively steady without dizziness, lightheadedness, or ataxia. She feels hungry today and would like to eat breakfast. She denies any chest pain, palpitations, lightheadedness/ dizziness, blurred vision or double vision, or shortness of breath. In summary this is an 85-year-old female with a previous history of CVA 1, hypertension, hyperlipidemia who presents with one-day history of right sided facial droop and slurred speech. This is associated with difficulty writing with her right hand and difficulty with fine motor movement of her right hand. She recently had a skin cancer lesion removed from the tip of her nose 6 days ago and is using bacitracin ointment on this twice daily. She lives independently at an apartment in [facility]. Review of Systems Constitutional: COMPLAINS OF: Fatigue, DENIES: Fever, Weight loss, Chills, Dizziness Eyes: DENIES: Blurred vision, Diplopia, Vision loss, Photosensitivity, Double Vision Respiratory: DENIES: Cough, Wheezing, Sputum production, Shortness of breath Cardiovascular: DENIES: Chest pain, Palpitations Gastrointestinal: DENIES: Abdominal pain, Constipation, Diarrhea, Nausea, Vomiting, Difficulty Swallowing Neurologic: COMPLAINS OF: Speech Problems, DENIES: Abnormal gait, Headache, Localized weakness, Paresthesias, Seizures, Tremor, Poor Balance Psychiatric: DENIES: Anxiety, Hallucinations, Delusions Past Family Social History Past Medical History - osteoporosis with lumbar compression fx - PUD with GI bleeding 2005 - carpal tunnel syndrome L>R - h/o gout - hypertension (Denies) - cerebrovascular disease (hx stroke 2007) - diastolic dysfunction - hyperlipidemia - dry eyes and mouth - h/o colon cancer - OA Past Surgical History - resection of colon cancer 1999 - appendectomy 2000 - cervical spine surgery 2007 - hysterectomy 1997 Allergies: Coded Allergies: Neomycin (Verified Allergy, Severe, RASH, 03/15/16) Penicillin (Verified Allergy, Severe, RASH, 03/15/16) Sulfa (Verified Allergy, Severe, RASH, 03/15/16) Family History Father: age 86 of heart failure Mother: age 96 of CHF Siblings: none Children: 3 - 1 age 59 of multiple myeloma Social History Marital Status: Living Situation: Living in an independent apartment at [facility] Education: 4 years of college Work history: retired, aerospace management Tobacco: none Alcohol: none Illicit drug use: none Physical Exam Vital Signs Vital Signs Date Time Temp Pulse Resp B/P Pulse Ox O2 Delivery O2 Flow Rate FiO2 11/12/16 08:25 97.2 66 20 130/76 95 11/12/16 04:42 97.7 76 18 135/74 94 11/12/16 00:33 96.8 72 20 147/82 95 11/11/16 19:52 75 18 166/91 97 Room Air 11/11/16 18:39 76 16 166/91 95 Room Air 11/11/16 15:28 84 17 95 Room Air 11/11/16 15:28 99 Room Air 11/11/16 15:25 88 14 177/95 94 11/11/16 15:18 97.9 102 16 161/95 95 Physical Exam GENERAL: Elderly female, sitting up in chair next to bed in no obvious distress SKIN: Venous stasis changes lower extremities bilaterally. Tip of nose with ulcerated lesion 5 mm and circular, and no surrounding erythema or drainage HEENT: Pupils equal round and reactive. Extraocular motions intact. NECK: Trachea midline. No lymphadenopathy. No carotid bruits. CARDIOVASCULAR: Regular rate and rhythm, without murmurs or gallops. RESPIRATORY: Lungs clear to auscultation bilaterally. No wheezes, rales, or rhonchi. GASTROINTESTINAL: Abdomen obese, soft, non-tender, nondistended. MUSCULOSKELETAL: Peripheral edema 1+ LE. Firmness to L calf. NEUROLOGICAL: AAO. Sensation intact V1-V3. Normal eyebrow raise, symmetrical wrinkling of forehead. Right sided facial droop with right sided tongue deviation. No pronator drift. Laboratory Laboratory Tests Test 11/11/16 11/11/16 11/12/16 15:50 21:00 07:10 White Blood Count 7.1 5.8 Red Blood Count 4.77 4.40 Hemoglobin 13.7 12.7 Hematocrit 42.0 38.5 Mean Corpuscular Volume 88.1 87.5 Mean Corpuscular Hemoglobin 28.8 29.0 Mean Corpuscular Hemoglobin 32.7 33.1 Concent Red Cell Distribution Width 15.7 15.7 Platelet Count 264 243 Mean Platelet Volume 7.3 7.2 Neutrophils (%) (Auto) 79.3 66.6 Lymphocytes (%) (Auto) 12.1 19.7 Monocytes (%) (Auto) 7.9 10.7 Eosinophils (%) (Auto) 0.4 2.7 Basophils (%) (Auto) 0.3 0.3 Neutrophils # (Auto) 5.6 3.9 Lymphocytes # (Auto) 0.9 1.1 Monocytes # (Auto) 0.6 0.6 Eosinophils # (Auto) 0.0 0.2 Basophils # (Auto) 0.0 0.0 CBC Comment DIFF FINAL DIFF FINAL Differential Comment Prothrombin Time 10.7 Prothromb Time International 1.0 Ratio Activated Partial 26.7 Thromboplast Time Sodium Level 134 139 Potassium Level 4.0 3.3 Chloride Level 98 105 Carbon Dioxide Level 27.9 23.6 Anion Gap 8 10 Blood Urea Nitrogen 15 10 Creatinine 1.00 0.63 Estimat Glomerular Filtration 53 90 Rate Random Glucose 104 79 Calcium Level 10.0 8.6 Total Creatine Kinase 242 Creatine Kinase MB 6.2 Creatine Kinase MB % 2.6 Troponin I LESS THAN 0.02 Total Bilirubin 0.7 Aspartate Amino Transf 22 (AST/SGOT) Alanine Aminotransferase 19 (ALT/SGPT) Alkaline Phosphatase 84 Total Protein 6.3 Albumin 3.2 Triglycerides Level 84 Cholesterol Level 116 LDL Cholesterol 70 HDL Cholesterol 29.6 Cholesterol/HDL Ratio 3.91 Result Diagram: 11/12/1670911/12/16709 Imaging Last 48 hours Impressions Head Magnetic Resonance Angiography 11/12/162232 Signed Impressions: Service Date/Time: Saturday, November 12, 2016 07:31 - CONCLUSION: Slight atherosclerotic changes of distal branches bilaterally, otherwise unremarkable. Agueda Palencia MD Brain MRI 11/12/162232 Signed Impressions: Service Date/Time: Saturday, November 12, 2016 07:31 - CONCLUSION: Acute infarction involving the left parietal lobe without hemorrhage or mass effect and probable artifact involving the anterior portion of the brainstem on the left side as above. Agueda Palencia MD Head CT 11/11/16 1607 Signed Impressions: Service Date/Time: Friday, November 11, 2016 16:41 - CONCLUSION: 1. No acute findings. Elliot Cruz MD Carotid Artery Ultrasound 11/11/16 0000 Signed Impressions: Service Date/Time: Friday, November 11, 2016 20:04 - CONCLUSION: 1. Mild plaque in the carotid arteries bilaterally without evidence for hemodynamically significant stenosis. Vertebral artery flow antegrade. Elliot Cruz MD Assessment and Plan Assessment and Plan 85 year-old female presenting with slurred speech and R facial droop 22 hours prior to admission, found to have acute ischemic stroke. Failed aspirin therapy. Problem List: (1) Acute ischemic stroke Status: Acute Plan: Continued right sided facial droop with slurred speech Brain MRI: Acute infarction involving the left parietal lobe without hemorrhage or mass effect Brain MRA: slight atherosclerotic changes of distal branches bilaterally, otherwise unremarkable Carotid ultrasound: Mild plaque in the carotid arteries bilaterally without evidence for hemodynamically significant stenosis Head CT: No acute findings 2-D echocardiogram pending Medication management: Aspirin 81 mg by mouth daily Plavix 75 mg by mouth daily - added on admission Atorvastatin 40 mg by mouth daily Continue permissive hypertension Physical therapy consulted to evaluate patient Speech therapy has evaluated patient and recommends a mechanical soft diet with nectar thickened liquids Neurology consulted to evaluate patient, appreciate recommendations (2) Diastolic dysfunction Status: Acute Plan: No cardiac imaging in EHR. Diagnosis per PCP Note and clinical presentation with peripheral edema. -Home Torsemide 20mg PO BID -Home KCl 20meq PO daily -Home Aspirin 81 Mg PO daily -ECHO pending (3) HTN (hypertension) Status: Acute Plan: Permissive hypertension at this time - As needed Vasotec for systolic blood pressure greater than 220 (4) HLD (hyperlipidemia) Status: Acute Plan: Hold home statin started on atorvastatin 40 mg daily at bedtime Lipid panel performed: Total cholesterol 116 LDL 70 HDL 29.6 Triglycerides 84 (5) Skin cancer of nose Status: Acute Plan: Recently removed from tip of nose - Continue bacitracin ointment twice daily - Daily dressing changes (6) Nutrition, metabolism, and development symptoms Status: Acute Plan: Fluids: Discontinue IV fluids, mechanical soft diet with nectar thickened liquids Electrolytes: Monitor and replete, as needed GI prophylaxis: not indicated, continue home Ranitidine DVT prophlaxis: Lovenox 40mg SQ q24h Physician Certification 2 Midnight Certification Type: Admission for Inpatient Services Order for Inpatient Services The services are ordered in accordance with Medicare regulations or non- Medicare payer requirements, as applicable. In the case of services not specified as inpatient-only, they are appropriately provided as inpatient services in accordance with the 2-midnight benchmark. Estimated LOS (days): 2 2 days is the estimated time the patient will need to remain in the hospital, assuming treatment plan goals are met and no additional complications. Post-Hospital Plan: Not yet determined Problem Qualifiers (1) HLD (hyperlipidemia): Qualified Code: E78.5 - Hyperlipidemia, unspecified hyperlipidemia type (2) HTN (hypertension): Qualified Code: I10 - Essential hypertension Manuel Lemons MD Nov 12, 2016 10:52
[2016-11-12 12:23] VITALS: BP 123/63; PULSE 92; RESP 20; TEMP 96.9; O2SAT 95
--- NOTE | 2016-11-12 15:03 | EKG ---
Date Performed: 11/11/2016 Time Performed: 15:34:03 PTAGE: 85 years EKG: Sinus rhythm WITH FIRST DEGREE AV BLOCK MARKED LEFT AXIS DEVIATION LOW QRS VOLTAGE IN PRECORDIAL LEADS POSSIBLE A NTERIOR MYOCARDIAL INFARCTION When compared to previous tracing, no significant change. ABNORMAL ECG PREVIOUS TRACING : 03/02/2008 11.43 DOCTOR: Cachorro Brandt Interpretating Date/Time 11/12/2016 15:01:29
[2016-11-12 17:21] VITALS: BP 135/87; PULSE 87; RESP 20; TEMP 97.4; O2SAT 94
[2016-11-12 20:00] VITALS: BP 138/96; PULSE 80; RESP 18; TEMP 97; O2SAT 90
[2016-11-12] MEDS: AMITRIPTYLINE HCL 50 MG TAB PO SCH (20:45)
[2016-11-12] MEDS: ATORVASTATIN 40 MG TAB PO SCH (20:45)
[2016-11-12] MEDS: ENOXAPARIN SODIUM 40 MG/0.4 ML SYRINGE SQ SCH (20:45)
[2016-11-12] MEDS ORDERED: POTASSIUM CHLORIDE 10 MEQ CONTROLLED RELEASE TAB PO ONE (21:30)
[2016-11-13 00:50] VITALS: BP 111/75; PULSE 79; RESP 18; TEMP 97.1; O2SAT 92
[2016-11-13 04:00] VITALS: BP 103/63; PULSE 74; RESP 18; TEMP 97.9; O2SAT 94
[2016-11-13] MEDS: SODIUM CHLOR 0.9% 1000 ML INJ 1,000 ML IV SCH (06:01)
[2016-11-13] MEDS: INSULIN ASPART SUPPLEMENTAL SCALE SQ SCH ×2 (06:01→21:00)
[2016-11-13 08:26] VITALS: BP 113/79; PULSE 73; RESP 20; TEMP 96.2; O2SAT 95
[2016-11-13 08:34] LABS: HEMATOCRIT 39.2 % (35.0-46.0); MEAN CELL VOLUME 86.6 FL (80.0-100.0); MEAN CORPUSCULAR HEMOGLOBIN 29.6 PG (27.0-34.0); MEAN CORPUSCULAR HGB CONC 34.2 % (32.0-36.0); PLATELET COUNT 254 TH/MM3 (150-450); RED BLOOD COUNT 4.53 MIL/MM3 (4.00-5.30); RED CELL DISTRIBUTION WIDTH 15.6 % (11.6-17.2); REVIEW FLAG FINAL; WHITE BLOOD COUNT 6.1 TH/MM3 (4.0-11.0)
--- NOTE | 2016-11-13 08:38 | HHI.PR ---
Review/Management Diagnosis/Plan: (1) Acute ischemic stroke Plan: left subcortical infarct etiology: small vessel dz vs embolic occurring during cessation of aspirin mri/mra images reviewed. not certain left ventral dwi is artifact or real; could repeat mri in future lipids well controlled recs neuro stable on plavix tele p.t./s.t. f/u echo-pending; ordered 11/11 should get outpatient event monitor to r/o afib bp control-improved d/c planning to rehab vs home with outpatient rehab (2) HLD (hyperlipidemia) (3) Diastolic dysfunction (4) HTN (hypertension) Subjective Subjective Comments No acute events reported No headache No chest pain No dyspnea Active Medications Current Medications Medications (Trade) Dose Ordered Sig/Gavin Route Start Time Stop Time Status Last Admin (Xanax) 0.25 mg Q4H PRN PO 11/11/16 18:15 11/12/16 06:33 (Elavil) 50 mg HS PO 11/11/16 21:00 11/12/16 20:45 (NS Flush) 2 ml BID IV FLUSH 11/11/16 21:00 11/12/16 20:46 Sodium Chloride 2 ml 2 ml UNSCH PRN IV FLUSH 11/11/16 18:45 (NS 1000 ml Inj) 1,000 ml @ 66 mls/hr [id number] IV 11/11/16 18:39 11/13/16 06:01 (Vasotec Inj) 1.25 mg Q4H PRN IV 11/11/16 18:45 (Plavix) 75 mg DAILY PO 11/11/16 18:45 11/12/16 08:44 (D50w (Vial) Inj) 25 ml UNSCH PRN IV PUSH 11/11/16 18:45 (Glucagon Inj) 1 mg UNSCH PRN IM/SQ 11/11/16 18:45 (Lovenox Inj) 40 mg Q24H SQ 11/11/16 20:00 11/12/16 20:45 (KCl) 20 meq DAILY PO 11/12/16 09:00 11/12/16 08:45 (Demadex) 20 mg BID PO 11/11/16 21:30 11/12/16 20:45 (Pepcid) 40 mg DAILY PO 11/12/16 09:00 11/12/16 08:44 (Lipitor) 40 mg HS PO 11/11/16 22:30 11/12/16 20:45 Allergies Allergies Coded Allergies Neomycin (Verified Allergy, Severe, RASH, 03/15/16) Penicillin (Verified Allergy, Severe, RASH, 03/15/16) Sulfa (Verified Allergy, Severe, RASH, 03/15/16) Review of Systems All other ROS: ROS reviewed as documented in chart Exam I&O / VS 11/12/16 11/12/16 11/13/16 15:00 23:00 07:00 Intake Total 720 ml Balance 720 ml Intake Oral 720 ml # Voids 3 4 # Bowel Movements 0 Vital Signs Date Time Temp Pulse Resp B/P Pulse Ox O2 Delivery O2 Flow Rate FiO2 11/13/16 08:26 96.2 73 20 113/79 95 11/13/16 04:00 97.9 74 18 103/63 94 11/13/16 00:50 97.1 79 18 111/75 92 11/12/16 20:00 97.0 80 18 138/96 90 11/12/16 17:21 97.4 87 20 135/87 94 11/12/16 12:23 96.9 92 20 123/63 95 General: Alert and Oriented, No acute distress Eye: EOMI Respiratory: Non-labored respirations Neurologic: Alert, Oriented Psychiatric: Cooperative, Appropriate mood & affect, Normal judgement, Non- suicidal Exam Comments alert sitting up, ox 2-3, follows, mild expressive aphasia, recognizes me, reduced rt nlf, eomi, vff, mild orbiting rt ue, 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
[2016-11-13] MEDS: CALCITONIN SALM 200 UNIT/SPRAY 3.7 ML BTLN NASAL SCH (09:00)
[2016-11-13] MEDS: SODIUM CHLORIDE 0.9% FLUSH 10 ML FLUSH IV FLUSH SCH ×2 (09:00→20:51)
[2016-11-13 09:09] LABS: BICARBONATE 27.8 MEQ/L (21.0-32.0); MAGNESIUM 2.2 MG/DL (1.5-2.5); POTASSIUM 3.3 MEQ/L (3.5-5.1)
[2016-11-13] MEDS: CLOPIDOGREL 75 MG TAB PO SCH (09:26)
[2016-11-13] MEDS: TORSEMIDE 20 MG TAB PO SCH ×2 (09:26→20:51)
[2016-11-13] MEDS: FAMOTIDINE 20 MG TAB PO SCH (09:26)
[2016-11-13] MEDS: POTASSIUM CHLORIDE 20 MEQ CONTROLLED RELEASE TAB PO SCH (09:26)
[2016-11-13] MEDS ORDERED: TORS20TA PO (09:59)
--- NOTE | 2016-11-13 10:15 | HHI.FPPN ---
Subjective Remarks Patient seen and examined. SANCHEZ overnight. VSSAF. She denies complaints this morning. She is able to get out of bed and into the chair this morning. However reports that her speech remains unchanged from yesterday. She did work with ST this morning. Of note, patient would like to go to rehab for PT if possible. CM is on board to assist with d/c planning. (Danay Novak MD R3) Objective Vitals Vital Signs Date Time Temp Pulse Resp B/P Pulse Ox O2 Delivery O2 Flow Rate FiO2 11/13/16 08:26 96.2 73 20 113/79 95 11/13/16 04:00 97.9 74 18 103/63 94 11/13/16 00:50 97.1 79 18 111/75 92 11/12/16 20:00 97.0 80 18 138/96 90 11/12/16 17:21 97.4 87 20 135/87 94 11/12/16 12:23 96.9 92 20 123/63 95 I/O 11/12/16 11/12/16 11/12/16 11/13/16 11/13/16 11/13/16 07:00 15:00 23:00 07:00 15:00 23:00 Intake Total 364 ml 720 ml Balance 364 ml 720 ml Intake Oral 720 ml IV Total 364 ml # Voids 1 3 4 # Bowel Movements 0 (Danay Novak MD R3) Result Diagram: 11/13/16 0730 11/13/16 0730 Imaging Head Magnetic Resonance Angiography 11/12/162232 Signed Impressions: Service Date/Time: Saturday, November 12, 2016 07:31 - CONCLUSION: Slight atherosclerotic changes of distal branches bilaterally, otherwise unremarkable. Agueda Palencia MD Brain MRI 11/12/162232 Signed Impressions: Service Date/Time: Saturday, November 12, 2016 07:31 - CONCLUSION: Acute infarction involving the left parietal lobe without hemorrhage or mass effect and probable artifact involving the anterior portion of the brainstem on the left side as above. Agueda Palencia MD Head CT 11/11/16 1607 Signed Impressions: Service Date/Time: Friday, November 11, 2016 16:41 - CONCLUSION: 1. No acute findings. Elliot Cruz MD Carotid Artery Ultrasound 11/11/16 0000 Signed Impressions: Service Date/Time: Friday, November 11, 2016 20:04 - CONCLUSION: 1. Mild plaque in the carotid arteries bilaterally without evidence for hemodynamically significant stenosis. Vertebral artery flow antegrade. Elliot Cruz MD Objective Remarks GENERAL: WNWD elderly female, sitting up in chair next to bed in no acute distress SKIN: Venous stasis changes lower extremities bilaterally. Tip of nose with ulcerated lesion 5 mm and circular, and no surrounding erythema or drainage. Lesion covered with clean dressing. HEENT: Pupils equal round and reactive. Extraocular motions intact. No conjunctival injection. NECK: Trachea midline. No lymphadenopathy. No carotid bruits. CARDIOVASCULAR: Regular rate and rhythm, without murmurs or gallops. RESPIRATORY: Lungs clear to auscultation bilaterally. No wheezes, rales, or rhonchi. GASTROINTESTINAL: Abdomen obese, soft, non-tender, nondistended. Active bowel bowel sounds. MUSCULOSKELETAL: Peripheral edema 1+ LE. 5/5 strength in bilateral UEs and LEs. NEUROLOGICAL: AAO. Mild expressive aphasia, CN 2-12 grossly intact. Normal eyebrow raise, symmetrical wrinkling of forehead. Slight right facial droop. No pronator drift. Cerebellar test WNL. Did not assess gait. (Danay Novak MD R3) A/P Assessment and Plan 85 year-old female with history of CVA, hypertension, and HLD who was admitted for left subcortical ischemic infarct while off Aspirin therapy. w/d/w Dr. Lemons Discharge Planning Clinically improving. PT recommends rehab; per CM, patient may qualify for [facility] rehab. She will touch base with inpatient rehab today to see if patient could potentially be discharge to [facility] today. (Danay Novak MD R3) Attending Attestation Pt. examined and case discussed with resident team I have read the above note and agree with the assessment/plan as discussed with me I was involved in all medical decision making for this patient Manuel Lemons MD (Manuel Lemons MD) Problem List: (1) Acute ischemic stroke Status: Acute Plan: Persistent right sided facial droop with mild aphasia today. No residual extremity weakness. Imaging: -Brain MRI: Acute infarction involving the left parietal lobe without hemorrhage or mass effect -Brain MRA: slight atherosclerotic changes of distal branches bilaterally, otherwise unremarkable -Carotid ultrasound: Mild plaque in the carotid arteries bilaterally without evidence for hemodynamically significant stenosis -Head CT: No acute findings -ECHO pending -Neurology consulted. Appreciate recommendations. * Continue Plavix 75mg po daily * PT/ST/OT * Holter monitor as outpatient to r/o A.fib * Atorvastatin 40mg po QHS -Speech therapy recommends a mechanical soft diet with nectar thickened liquids (2) Diastolic dysfunction Status: Acute Plan: -Continue Torsemide 20mg PO BID given edema -KCl 20meq PO daily -ECHO pending (3) HTN (hypertension) Status: Chronic Plan: BP stable -Vasotec PRN (4) HLD (hyperlipidemia) Status: Chronic Plan: -Continue atorvastatin 40 mg daily at bedtime Lipid panel performed: Total cholesterol 116 LDL 70 HDL 29.6 Triglycerides 84 (5) Skin cancer of nose Status: Acute Plan: Recently removed from tip of nose - Continue bacitracin ointment twice daily - Daily dressing changes (6) Nutrition, metabolism, and development symptoms Status: Acute Plan: Fluids: Discontinue IV fluids, mechanical soft diet with nectar thickened liquids Electrolytes: K 3.3; will replete with po potassium GI prophylaxis: Patient on Pepcid DVT prophlaxis: Lovenox 40mg SQ q24h (Danay Novak MD R3) Problem Qualifiers (1) HTN (hypertension): Qualified Code: I10 - Essential hypertension (2) HLD (hyperlipidemia): Qualified Code: E78.5 - Hyperlipidemia, unspecified hyperlipidemia type Danay Novak MD R3 Nov 13, 2016 10:15 Manuel Lemons MD Nov 13, 2016 16:24
--- NOTE | 2016-11-13 14:47 | EC ---
Study Study Date:11/12/2016 STUDY CONCLUSIONS SUMMARY - Left ventricle: The cavity size was normal. Wall thickness was normal. Systolic function was normal. The estimated ejection fraction was in the range of 60% to 65%. Wall motion was normal; there were no regional wall motion abnormalities. Doppler parameters are consistent with abnormal left ventricular relaxation (grade 1 diastolic dysfunction). - Aortic valve: Valve area: 3.31cm^2(VTI). Valve area: 2.98cm^2 (Vmax). - Mitral valve: Mildly calcified annulus. Mildly thickened, moderately calcified leaflets, . If LV function is below 40, please consider prescribing an ACEI or ARB or document rationale for non-use. PROCEDURE DATA STUDY STATUS: Elective. Procedure: Transthoracic echocardiography. Image quality was good. Scanning was performed from the parasternal, apical, and subcostal acoustic windows. Study completion: The patient tolerated the procedure well. Transthoracic echocardiography. M-mode, complete 2D, complete spectral Doppler, and color Doppler. Height: Height: 63in. Weight: Weight: 157.7lb. Body mass index: BMI: 28kg/m^2. Body surface area: BSA: 1.75m^2. Patient status: Inpatient. CARDIAC ANATOMY LEFT VENTRICLE: The cavity size was normal. Wall thickness was normal. Systolic function was normal. The estimated ejection fraction was in the range of 60% to 65%. Wall motion was normal; there were no regional wall motion abnormalities. Doppler parameters are consistent with abnormal left ventricular relaxation (grade 1 diastolic dysfunction). AORTIC VALVE: Trileaflet; normal thickness leaflets. Doppler: Transvalvular velocity was within the normal range. There was no stenosis. No regurgitation. Valve area: 3.31cm^2(VTI). Indexed valve area: 1.89cm^2/m^2 (VTI). Valve area: 2.98cm^2 (Vmax). Indexed valve area: 1.7cm^2/m^2 (Vmax). Mean gradient: 2mm Hg (S). AORTA: Aortic root: The aortic root was mildly dilated. MITRAL VALVE: Mildly calcified annulus. Mildly thickened, moderately calcified leaflets, . Doppler: Transvalvular velocity was within the normal range. There was no evidence for stenosis. Trace regurgitation. LEFT ATRIUM: The atrium was normal in size. RIGHT VENTRICLE: The cavity size was normal. Wall thickness was normal. PULMONIC VALVE: Doppler: Transvalvular velocity was within the normal range. There was no evidence for stenosis. No regurgitation. TRICUSPID VALVE: Structurally normal valve. Doppler: Transvalvular velocity was within the normal range. Trace regurgitation. PULMONARY ARTERY: The main pulmonary artery was normal-sized. Systolic pressure was within the normal range. RIGHT ATRIUM: The atrium was normal in size. PERICARDIUM: There was no pericardial effusion. SYSTEMIC VEINS: Inferior vena cava: The vessel was normal in size. Patient weight: 157.7lb _Ejection fraction:_ 65-75% _Fractional shortening:_ 32% up to 5Kg 5-11.5Kg 11.6-22.9Kg 23-45Kg 45-57Kg Aortic Root 7-13 <17 13-22 17-27 17-27 LA diam 6-13 <23 24-38 33-47 37-40 RVID 10-17 7-15 7-15 7-18 8-17 LVIDd 12-22 <32 24-38 33-47 37-40 LVPW 2-4 3-6 5-7 6-8 7-8 IVS 2-4 3-6 5-7 6-8 7-8 BASIC MEASUREMENTS ADULT NORMAL Left ventricle LV internal dimension, ED, chordal *35.4 mm 43-52 level, PLAX LV internal dimension, ES, chordal 23.9 mm 23-38 level, PLAX Fractional shortening, chordal level, 32 % >29 PLAX LV posterior wall thickness, ED 9.08 mm IVS/LVPW ratio, ED 1 <1.3 Ventricular septum Septal thickness, ED 9.06 mm Aortic valve Leaflet separation 16 mm 15-26 Aorta Root diameter, ED 40 mm Left atrium Anterior-posterior dimension 22 mm Anterior-posterior dimension index 1.26 cm/m^2 <2.2 BASIC MEASUREMENTS ADULT NORMAL Aortic valve Leaflet separation 16 mm 15-26 DOPPLER MEASUREMENTS ADULT NORMAL Main pulmonary artery Pressure, S 30 mm Hg =30 Aortic valve Peak velocity, S 97.9 cm/s Mean velocity, S 65.5 cm/s VTI, S 18.2 cm Mean gradient, S 2 mm Hg Valve area, VTI 3.31 cm^2 Valve area index, VTI 1.89 cm^2/m^2 Valve area, Vmax 2.98 cm^2 Valve area index, Vmax 1.7 cm^2/m^2 Mitral valve Peak E-wave velocity 62.8 cm/s Peak A-wave velocity 100 cm/s Deceleration time 187 ms 150-230 Peak E/A ratio 0.6 Tricuspid valve Regurgitant peak velocity 221 cm/s Peak RV-RA gradient, S 20 mm Hg Maximal regurgitant velocity 221 cm/s Systemic veins Estimated CVP 10 mm Hg Right ventricle RV pressure, S *30 mm Hg <30 Pulmonic valve Peak velocity, S 25.1 cm/s LEGEND: Mean values are shown as u=mean value. Asterisk (*) wu values outside specified normal range. Prepared and signed by Candido Clark [id number]
[2016-11-13 16:17] VITALS: BP 119/89; PULSE 94; RESP 20; TEMP 97.2; O2SAT 97
[2016-11-13] MEDS ORDERED: PLAV75TA29 PO (16:21)
[2016-11-13 18:12] VITALS: PULSE 94
[2016-11-13 20:00] VITALS: BP 139/94; PULSE 84; RESP 18; TEMP 96.7; O2SAT 94
[2016-11-13] MEDS: ENOXAPARIN SODIUM 40 MG/0.4 ML SYRINGE SQ SCH (20:50)
[2016-11-13] MEDS: ATORVASTATIN 40 MG TAB PO SCH (20:51)
[2016-11-13] MEDS: AMITRIPTYLINE HCL 50 MG TAB PO SCH (20:51)
[2016-11-14] VITALS: BP 124/77; PULSE 91; RESP 18; TEMP 97.7; O2SAT 95
[2016-11-14 05:44] VITALS: BP 101/60; PULSE 79; RESP 16; TEMP 97.2; O2SAT 93
[2016-11-14 07:00] VITALS: PULSE 66
[2016-11-14] MEDS: INSULIN ASPART SUPPLEMENTAL SCALE SQ SCH ×2 (07:00→11:00)
[2016-11-14 07:59] VITALS: BP 121/71; PULSE 66; RESP 18; TEMP 95.9; O2SAT 97
[2016-11-14] MEDS: CLOPIDOGREL 75 MG TAB PO SCH (08:14)
[2016-11-14] MEDS: POTASSIUM CHLORIDE 20 MEQ CONTROLLED RELEASE TAB PO SCH (08:15)
[2016-11-14] MEDS: TORSEMIDE 20 MG TAB PO SCH (08:15)
[2016-11-14] MEDS: FAMOTIDINE 20 MG TAB PO SCH (08:16)
[2016-11-14] MEDS: SODIUM CHLORIDE 0.9% FLUSH 10 ML FLUSH IV FLUSH SCH (08:16)
--- NOTE | 2016-11-14 08:17 | HHI.PR ---
Review/Management Diagnosis/Plan: (1) Acute ischemic stroke Plan: left subcortical infarct etiology: small vessel dz vs embolic occurring during cessation of aspirin mri/mra images reviewed. not certain left ventral dwi is artifact or real; could repeat mri in future lipids well controlled plavix bp control recs doing well f/u echo-ef 60%, calcified mitral valve, left atrium nml size should get outpatient event monitor to r/o afib bp control-improved d/c planning to rehab vs home with outpatient rehab outpatient f/u with us in 2-3 weeks (2) HLD (hyperlipidemia) (3) Diastolic dysfunction (4) HTN (hypertension) Subjective Subjective Comments No acute events reported No headache No chest pain No dyspnea Active Medications Current Medications Medications (Trade) Dose Ordered Sig/Gavin Route Start Time Stop Time Status Last Admin (Xanax) 0.25 mg Q4H PRN PO 11/11/16 18:15 11/12/16 06:33 (Elavil) 50 mg HS PO 11/11/16 21:00 11/13/16 20:51 (NS Flush) 2 ml BID IV FLUSH 11/11/16 21:00 11/13/16 20:51 (NS Flush) 2 ml UNSCH PRN IV FLUSH 11/11/16 18:45 (Vasotec Inj) 1.25 mg Q4H PRN IV 11/11/16 18:45 (Plavix) 75 mg DAILY PO 11/11/16 18:45 11/13/16 09:26 (D50w (Vial) Inj) 25 ml UNSCH PRN IV PUSH 11/11/16 18:45 (Glucagon Inj) 1 mg UNSCH PRN IM/SQ 11/11/16 18:45 (Lovenox Inj) 40 mg Q24H SQ 11/11/16 20:00 11/13/16 20:50 (KCl) 20 meq DAILY PO 11/12/16 09:00 11/13/16 09:26 (Demadex) 20 mg BID PO 11/11/16 21:30 11/13/16 20:51 (Pepcid) 40 mg DAILY PO 11/12/16 09:00 11/13/16 09:26 (Lipitor) 40 mg HS PO 11/11/16 22:30 11/13/16 20:51 Allergies Allergies Coded Allergies Neomycin (Verified Allergy, Severe, RASH, 03/15/16) Penicillin (Verified Allergy, Severe, RASH, 03/15/16) Sulfa (Verified Allergy, Severe, RASH, 03/15/16) Review of Systems All other ROS: ROS reviewed as documented in chart Exam I&O / VS 11/13/16 11/13/16 11/14/16 15:00 23:00 07:00 Intake Total 240 ml Balance 240 ml Intake Oral 240 ml # Voids 1 1 # Bowel Movements 1 3 0 Vital Signs Date Time Temp Pulse Resp B/P Pulse Ox O2 Delivery O2 Flow Rate FiO2 11/14/16 07:59 95.9 66 18 121/71 97 11/14/16 05:44 97.2 79 16 101/60 93 11/14/16 00:00 97.7 91 18 124/77 95 11/13/16 20:00 96.7 84 18 139/94 94 11/13/16 18:12 94 11/13/16 16:17 97.2 94 20 119/89 97 11/13/16 08:26 96.2 73 20 113/79 95 General: Alert and Oriented, No acute distress Eye: EOMI Respiratory: Non-labored respirations Neurologic: Alert, Oriented Psychiatric: Cooperative, Appropriate mood & affect, Normal judgement, Non- suicidal Exam Comments alert sitting up, ox 3, follows, pleasant, mild expressive aphasia, recognizes me, reduced rt nlf, eomi, vff, mild orbiting rt ue, 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
[2016-11-14] MEDS: CALCITONIN SALM 200 UNIT/SPRAY 3.7 ML BTLN NASAL SCH (08:27)
[2016-11-14 08:57] LABS: BICARBONATE 27.8 MEQ/L (21.0-32.0); POTASSIUM 3.4 MEQ/L (3.5-5.1)
[2016-11-14] MEDS ORDERED: POTASSIUM CHLORIDE 10 MEQ CONTROLLED RELEASE TAB PO ONE (09:15)
--- NOTE | 2016-11-14 09:17 | HHI.FPPN ---
Subjective Remarks Pt seen and examined this morning. No acute events overnight. AFVSS. Pt reports feeling well overall, and expresses the desire to go home. Her speech is not back to baseline, she is having difficulty witting with her right hand and she endorses weakness of her right upper and lower extremity. She denies chest pain , shortness of breath, abdominal pain, calf pain. Pt working with PT. Objective Vitals Vital Signs Date Time Temp Pulse Resp B/P Pulse Ox O2 Delivery O2 Flow Rate FiO2 11/14/16 07:59 95.9 66 18 121/71 97 11/14/16 05:44 97.2 79 16 101/60 93 11/14/16 00:00 97.7 91 18 124/77 95 11/13/16 20:00 96.7 84 18 139/94 94 11/13/16 18:12 94 11/13/16 16:17 97.2 94 20 119/89 97 I/O 11/13/16 11/13/16 11/13/16 11/14/16 11/14/16 11/14/16 07:00 15:00 23:00 07:00 15:00 23:00 Intake Total 240 ml Balance 240 ml Intake Oral 240 ml # Voids 4 1 1 # Bowel Movements 0 1 3 0 Result Diagram: 11/13/16 0730 11/14/16 0700 Objective Remarks GENERAL: WN WD elderly female, sitting up in chair next to bed in no acute distress SKIN: Venous stasis changes lower extremities bilaterally. Tip of nose with ulcerated lesion 5 mm and circular, and no surrounding erythema or drainage. Lesion covered with clean dressing. HEENT: Pupils equal round and reactive. Extraocular motions intact. No conjunctival injection. NECK: Trachea midline. No lymphadenopathy. No carotid bruits. CARDIOVASCULAR: Regular rate and rhythm, without murmurs or gallops. RESPIRATORY: Lungs clear to auscultation bilaterally. No wheezes, rales, or rhonchi. GASTROINTESTINAL: Abdomen obese, soft, non-tender, nondistended. Active bowel bowel sounds. MUSCULOSKELETAL: Peripheral edema 1+ LE. 5/5 strength in bilateral UEs and LEs. NEUROLOGICAL: AAO. Mild expressive aphasia, CN 2-12 grossly intact. Normal eyebrow raise, symmetrical wrinkling of forehead. Slight right facial droop appreciated when pt smiles. No pronator drift. Cerebellar test WNL. Pt able to walk with assistance of walker, favors the left leg, may be due to spine curvature/scoliosis per PT. A/P Assessment and Plan 85 year-old female with history of CVA, hypertension, and HLD who was admitted for left subcortical ischemic infarct while off Aspirin therapy. w/d/w Dr. Lemons Discharge Planning Clinically improving. PT recommends rehab. Pt to be discharged to [facility] today. [id number] form signed on pts chart. Problem List: (1) Acute ischemic stroke Status: Acute Plan: Persistent right sided facial droop with mild aphasia today. No residual extremity weakness. Imaging: -Brain MRI: Acute infarction involving the left parietal lobe without hemorrhage or mass effect -Brain MRA: slight atherosclerotic changes of distal branches bilaterally, otherwise unremarkable -Carotid ultrasound: Mild plaque in the carotid arteries bilaterally without evidence for hemodynamically significant stenosis -Head CT: No acute findings -ECHO with EF of 55-60%. Grade one diastolic dysfunction. Aortic valve area of 2.98 cm squared (Vmax), Mitral valve with mildly calcified annulus, mildly thickened, moderately calcified leaflets. -Neurology consulted. Appreciate recommendations. * Continue Plavix 75mg po daily * PT/ST/OT * Holter monitor as outpatient to r/o A.fib * Atorvastatin 40mg po QHS -Speech therapy recommends a mechanical soft diet with nectar thickened liquids (2) Diastolic dysfunction Status: Acute Plan: -Continue Torsemide 20mg PO BID given edema -KCl 20meq PO daily -ECHO results as above (3) HTN (hypertension) Status: Chronic Plan: BP stable -Vasotec PRN (4) HLD (hyperlipidemia) Status: Chronic Plan: -Continue atorvastatin 40 mg daily at bedtime Lipid panel performed: Total cholesterol 116 LDL 70 HDL 29.6 Triglycerides 84 (5) Skin cancer of nose Status: Acute Plan: Skin cancer recently removed from tip of nose - Continue bacitracin ointment twice daily - Daily dressing changes (6) Nutrition, metabolism, and development symptoms Status: Acute Plan: Fluids: Discontinue IV fluids, mechanical soft diet with nectar thickened liquids Electrolytes: K 3.4; will replete with po potassium GI prophylaxis: Patient on Pepcid DVT prophlaxis: Lovenox 40mg SQ q24h Problem Qualifiers (1) HTN (hypertension): Qualified Code: I10 - Essential hypertension (2) HLD (hyperlipidemia): Qualified Code: E78.5 - Hyperlipidemia, unspecified hyperlipidemia type Jerome Green MD R2 Nov 14, 2016 09:17
[2016-11-14 12:01] VITALS: BP 121/73; PULSE 86; RESP 18; TEMP 95.5; O2SAT 94
--- NOTE | 2016-11-14 12:54 | HHI.DCPOC ---
Discharge Care Plan Diagnosis: (1) Skin cancer of nose (2) HTN (hypertension) (3) HLD (hyperlipidemia) (4) Diastolic dysfunction (5) Acute ischemic stroke Goals to Promote Your Health * To prevent worsening of your condition and complications * To maintain your health at the optimal level Directions to Meet Your Goals Take your medications as prescribed Follow your dietary instruction Follow activity as directed Keep your appointments as scheduled Take your immunizations and boosters as scheduled If your symptoms worsen call your PCP, if no PCP go to Urgent Care Center or Emergency Room Smoking is Dangerous to Your Health. Avoid second hand smoke Call the 24-hour hour crisis hotline for domestic abuse at Jerome Green MD R2 Nov 14, 2016 12:54
[2016-11-14 16:01] VITALS: BP 107/72; PULSE 88; RESP 18; TEMP 98; O2SAT 94
[2016-11-15] MEDS ORDERED: FAMOTIDINE 20 MG TAB PO SCH (09:00)
[2016-11-16] MEDS ORDERED: ALPR.25 PO (09:57)
[2016-12-01] MEDS ORDERED: PLAV75TA29 PO (11:21)
--- NOTE | 2016-12-08 16:13 | HHI.DS ---
Discharge Summary Admission Date Nov 11, 2016 at 17:40 Discharge Date: Nov 14, 2016 Admitting Diagnosis acute ischemic CVA (1) Acute ischemic stroke Plan: Persistent right sided facial droop with mild aphasia today. No residual extremity weakness. Imaging: -Brain MRI: Acute infarction involving the left parietal lobe without hemorrhage or mass effect -Brain MRA: slight atherosclerotic changes of distal branches bilaterally, otherwise unremarkable -Carotid ultrasound: Mild plaque in the carotid arteries bilaterally without evidence for hemodynamically significant stenosis -Head CT: No acute findings -ECHO with EF of 55-60%. Grade one diastolic dysfunction. Aortic valve area of 2.98 cm squared (Vmax), Mitral valve with mildly calcified annulus, mildly thickened, moderately calcified leaflets. -Neurology consulted. Appreciate recommendations. * Continue Plavix 75mg po daily * PT/ST/OT * Holter monitor as outpatient to r/o A.fib * Atorvastatin 40mg po QHS -Speech therapy recommends a mechanical soft diet with nectar thickened liquids (2) Diastolic dysfunction Plan: -Continue Torsemide 20mg PO BID given edema -KCl 20meq PO daily -ECHO results as above (3) HTN (hypertension) Diagnosis: Secondary Plan: BP stable -Vasotec PRN (4) HLD (hyperlipidemia) Diagnosis: Secondary Plan: -Continue atorvastatin 40 mg daily at bedtime Lipid panel performed: Total cholesterol 116 LDL 70 HDL 29.6 Triglycerides 84 (5) Skin cancer of nose Diagnosis: Secondary Plan: Skin cancer recently removed from tip of nose - Continue bacitracin ointment twice daily - Daily dressing changes (6) Nutrition, metabolism, and development symptoms Diagnosis: Principal Plan: Fluids: Discontinue IV fluids, mechanical soft diet with nectar thickened liquids Electrolytes: K 3.4; will replete with po potassium GI prophylaxis: Patient on Pepcid DVT prophlaxis: Lovenox 40mg SQ q24h Brief History 85-year-old female with hypertension, hyperlipidemia, and hx of stroke (2007) presents with slurred speech, dysphagia, and R-sided facial droop x1 day. She noticed slurred speech and trouble swallowing yesterday at 3pm when unable to chew salad or swallow water at lunch. Her last known normal was just prior to this meal. Other symptoms include difficulty writing with her R hand. She denies headache, blurred vision, confusion, syncope, or sudden weakness associated with this event. Only changes to health are two days ago noted L- sided neck pain and "lump", now resolved, she attributed to possible tooth infection. Also fatigue over the last three months, acutely worse in last six days after a skin biopsy from the tip of her nose. Patient lives independently at apartment in [facility]. She did not originally come to hospital as friend suggested symptoms were more typical of allergic medication reaction to Doxycycline she began this week for her nose wound after biopsy. As symptoms were unchanged today, it prompted her to take cab to hospital. Code Status is DNR. PE at Discharge GENERAL: WN WD elderly female, sitting up in chair next to bed in no acute distress SKIN: Venous stasis changes lower extremities bilaterally. Tip of nose with ulcerated lesion 5 mm and circular, and no surrounding erythema or drainage. Lesion covered with clean dressing. HEENT: Pupils equal round and reactive. Extraocular motions intact. No conjunctival injection. NECK: Trachea midline. No lymphadenopathy. No carotid bruits. CARDIOVASCULAR: Regular rate and rhythm, without murmurs or gallops. RESPIRATORY: Lungs clear to auscultation bilaterally. No wheezes, rales, or rhonchi. GASTROINTESTINAL: Abdomen obese, soft, non-tender, nondistended. Active bowel bowel sounds. MUSCULOSKELETAL: Peripheral edema 1+ LE. 5/5 strength in bilateral UEs and LEs. NEUROLOGICAL: AAO. Mild expressive aphasia, CN 2-12 grossly intact. Normal eyebrow raise, symmetrical wrinkling of forehead. Slight right facial droop appreciated when pt smiles. No pronator drift. Cerebellar test WNL. Pt able to walk with assistance of walker, favors the left leg, may be due to spine curvature/scoliosis per PT. Hospital Course Patient was admitted and neurology was consulted for acute ischemic stroke. Stroke etiology likely small vessel versus embolic while off aspirin therapy for dermatologic procedure. MRI showed acute infarction involving the left parietal lobe without hemorrhage or mass effect. Echo showed EF of 55-60% with grade 1 diastolic dysfunction and calcified mitral valve. Neurology recommended medical management and continued her atorvastatin and Plavix daily. On exam patient's symptoms mildly improved, however there was continued right-sided facial droop with mild aphasia. PT, ST, and OT were consulted for evaluation and recommendations. Speech therapy recommended mechanical soft diet with nectar thickened liquids. PT/OT recommended continued physical therapy upon discharge. Patient was then discharged to [facility] for continued physical therapy and rehabilitation. Holter monitor was ordered to rule out possible arrhythmia causing stroke. Pt Condition on Discharge: Stable Discharge Disposition: Discharge to SNF Discharge Instructions DIET: Follow Instructions for: Heart Healthy Diet Speech Therapy-Diet Recommends: Mechanical Soft, [place] Thickened Liquids Activities you can perform: Regular-No Restrictions Other Activity Instructions: COntinue to walk with assistance of walker as needed. Follow up Referrals: Neurology - 1 Week PCP Follow-up - 1 Week SNF/[facility]/ with Germania Fallon New Orders: HOLTER MONITOR - 1 Week Continued Medications: Amitriptyline (Amitriptyline) 50 Mg Tab 50 MG PO HS Control Depression #90 Ref 1 TAB Calcitonin ([place]) Nasal [place] (Calcitonin ([place]) Nasal [place]) 200 Units/Act Soln 1 SPRAY NASAL DAILY Alternate nostrils daily. Osteoporosis #3.7 Ref 0 ML Calcium Carbonate-Cholecalciferol (Calcium 600 with Vitamin D) 600-400 mg-Unit Tab 1 TAB PO DAILY Calcium Supplement Ref 0 TAB Cyanocobalamin (B12) 1,000 Mcg Tab 1 TAB PO DAILY Cyclosporine Opth 0.05% (Restasis Opth 0.05%) 0.05% Emul 1 DROP EACH EYE BID Dry Eye #1 Ref 0 BOX [place]-3 Fatty Acids (Fish Oil) 1,000 Mg Cap 1 CAP PO DAILY Potassium Chloride ER (K-Tab) 20 Meq Tab 20 MEQ PO DAILY Electrolyte Replacement #30 Ref 0 TAB Probiotic Product (Probiotic) 1 Tab Tab 1 TAB PO DAILY Ranitidine (Ranitidine) 300 Mg Tab 300 MG PO DAILY Heartburn Management #90 Ref 3 TAB Simvastatin (Zocor) 40 Mg Tab 40 MG PO DAILY Cholesterol Management #30 Ref 0 TAB Torsemide (Torsemide) 20 Mg Tab 20 MG PO DAILY #90 Ref 3 TAB Discontinued Medications: Aspirin (Aspirin) 81 Mg Tabdr 81 MG PO DAILY TAB Hilario Javier MD R1 December 08, 2016 16:13
[2017-01-19] MEDS ORDERED: ZOCO40TA PO (14:14)
[2017-01-19] MEDS ORDERED: PLAV75TA29 PO (14:14)
== END 2016-11-14 17:35 | DRG 65 ==
LOC: NEPC 15:14 → NEDA 17:40 → N05A 21:27
PROVIDERS: ADMIT Family Medicine; ATTEND Family Medicine
DX: I63.9 Cerebral infarction, unspecified (principal); I50.30 Unspecified diastolic (congestive) heart failure; G62.9 Polyneuropathy, unspecified; R47.01 Aphasia; R13.10 Dysphagia, unspecified; R29.810 Facial weakness; E78.00 Pure hypercholesterolemia, unspecified; M19.90 Unspecified osteoarthritis, unspecified site; R51 Headache; E78.5 Hyperlipidemia, unspecified; M54.2 Cervicalgia; Z66 Do not resuscitate; I10 Essential (primary) hypertension; G56.00 Carpal tunnel syndrome, unspecified upper limb; M10.9 Gout, unspecified; Z79.82 Long term (current) use of aspirin; Z86.73 Personal history of transient ischemic attack (TIA), and cerebral infarction without residual deficits; Z85.038 Personal history of other malignant neoplasm of large intestine; Z87.310 Personal history of (healed) osteoporosis fracture; Z79.899 Other long term (current) drug therapy; C44.90 Unspecified malignant neoplasm of skin, unspecified
CPT/HCPCS: 70450; 70544; 70551; 80048; 80053; 80061; 82550; 82552; 82948; 83735; 84484; 85025; 85027; 85610; 85730; 93005; 93306; 93880; 94150; J1650; J1815; J7030

== ENCOUNTER → 2017-07-19 | Outpatient (CLI) | payer MEDICARE, BC ==
[~2017-07-19] MED LIST changes: +ALPR.25 PO; -ALPR0.25 PO; +CALC1TAB87 PO; +CYAN1TAB24 PO; +FISH1000 PO; +PLAV75TA29 PO; +POTA-163 PO; -POTA1TAB4 PO; +PROB1TAB PO
--- NOTE | 2017-07-19 10:27 | RADRPT ---
EXAM DATE/TIME: 07/19/2017 00:00 [facility] COMPARISON: No previous studies available for comparison. INDICATIONS : Dysphagia. FLUORO TIME: 1.1 minutes IMAGE COUNT: 0 CONTRAST: Dose as prescribed by speech pathologist. MEDICAL HISTORY : Stroke. SURGICAL HISTORY : None. ENCOUNTER: Initial ACUITY: 7 - 11 months PAIN SCORE: 0/10 LOCATION: esophagus FINDINGS: A modified barium swallow was performed with speech pathology. Patient was given a variety of liquids to swallow. No aspiration was noted. For a full detailed report, see report by the speech pathologist. CONCLUSION: Normal examination. Juan Sheridan MD on July 19, 2017 at 10:24 Board Certified Radiologist. This report was verified electronically.
== END ==
LOC: HRAD 09:46
PROVIDERS: ATTEND Family Medicine
DX: R13.14 Dysphagia, pharyngoesophageal phase (principal)
CPT/HCPCS: 74230; 92611; G8996; G8997; G8998